=== PATIENT | female | born 1995 | race Caucasian/White ===

== ENCOUNTER → 2018-08-06 | Outpatient (REF) | payer OTHER | LOC: ZZSENDIN 10:57 | PROVIDERS: ATTEND Orthopaedic Surgery Hand Surgery | DX: L08.9 Local infection of the skin and subcutaneous tissue, unspecified (principal) | CPT/HCPCS: 87071; 87205 ==

== ENCOUNTER → 2019-02-17 | Outpatient (CLI) | payer OTHER ==
[~2019-02-17] MED LIST: DOXY20PT PO
[2019-02-17 17:10] LABS: PLATELET COUNT, AUTOMATED 212 K/uL (150-450)
== END ==
LOC: LAB 16:24
PROVIDERS: ATTEND Internal Medicine
DX: L65.9 Nonscarring hair loss, unspecified (principal)
CPT/HCPCS: 36415; 82040; 82247; 82310; 82374; 82435; 82565; 82728; 82947; 83540; 83550; 84075; 84132; 84155; 84295; 84403; 84443; 84450; 84460; 84520; 85025

== ENCOUNTER → 2019-05-20 | Outpatient (REF) | payer OTHER | LOC: ZZSENDIN 14:28 | PROVIDERS: ATTEND Family Medicine | DX: M85.89 Other specified disorders of bone density and structure, multiple sites (principal) | CPT/HCPCS: 82652 ==